=== PATIENT | male | born 1970 | race African-American/Black ===

== ENCOUNTER 2020-03-28 23:46 | Emergency (ER) | payer MEDICAID ==
[~2020-03-28] VITALS: Ht 182.9 cm; Wt 82.0 kg
[2020-03-29] MEDS ORDERED: ASPIRIN 81MG TABLET PO ONE (00:45)
[2020-03-29 01:13] LABS: BASOPHILS % 0.5 % (0.0-2.0); EOSINOPHILS % 10.2 % (0.0-5.0); HEMOGLOBIN. 13.8 g/dL (14.0-18.0); LYMPHOCYTES % 32.8 % (20.0-50.0); MEAN CORPUSCULAR HEMOGLOBIN 32.6 pg (28.0-32.0); MEAN CORPUSCULAR VOLUME 94.4 fL (80.0-94.0); MEAN PLATELET VOLUME 6.9 fl (7.4-10.4); MONOCYTES % 10.5 % (2.0-8.0); PLATELET 250 x1000/uL (130-400); RED BLOOD CELL COUNT 4.24 mill/uL (4.7-6.1); RED CELL DISTRIBUTION WIDTH 13.3 % (11.6-14.6)
[2020-03-29 01:19] LABS: CHLORIDE 110 mEq/L (98-107)
[2020-03-29] MEDS: NITROGLYCERIN 0.4MG TABLET SL SL PRN ×3 (01:21→02:14)
[2020-03-29] MEDS ORDERED: ONDANSETRON HCL 4MG/2ML INJ IV STA (02:41)
[2020-03-29] MEDS ORDERED: MORPHINE SULFATE 4 MG/ML CPJ (NOT FOR IM USE) IV STA (02:41)
[2020-03-29 03:09] VITALS: BP 107/60
== END 2020-03-29 03:11 | disposition left against medical advice (07) ==
LOC: ER 23:46
DX: R07.89 Other chest pain (principal)
CPT/HCPCS: 36415; 71045; 80053; 83880; 84484; 85025; 85379; 93005; 99285; Z7610